=== PATIENT | female | born 1955 | race Asian ===

== ENCOUNTER 2016-07-20 08:29 | Emergency (ER) | payer BC ==
[2016-07-20 08:47] VITALS: BP 118/90; PULSE 94; RESP 20; TEMP 99; O2SAT 98
--- NOTE | 2016-07-20 09:16 | UCPHY ---
[id number] Seen by Provider: 07/20/16 08:57 HPI/ROS: Chief complaint: Cough, congestion, sore throat HPI: Patient presenting with complaints of cough, congestion, sore throat for the last 3 days. Cough is dry with occasional production of clear sputum. No fevers or chills. No nausea or vomiting. No shortness of breath. Patient has been taking [id number]-[id number] Claritin without relief. No ear pain. No chest pain. Patient has no past medical history, takes no medications, no allergies to medications. She does not smoke. ROS: 10 point Review of Systems is negative except as noted in the HPI. Physical exam: Gen: Awake, Alert, No Distress HEENT: Ears: Bilateral TMs are normal, no erythema or bulging. External auditory canals are clear. Nose: no rhinorrhea Eyes: PERRLA, EOMI Mouth: Moist mucosa mild pharyngeal erythema without exudate or edema Neck: Supple, no JVD Chest: nontender, lungs clear to auscultation Heart: S1, S2 normal, no murmur Abd: Soft, non-tender, no guarding Back: no CVA tenderness, no midline tenderness Ext: no edema, non-tender Skin: no rash Neuro: CN II-XII intact, Sensation grossly intact, Strength 5/5 in bilateral upper and lower extremities - Personal History Current Tetanus/Diphtheria Vaccine: Unsure - Family History Significant Family History: No pertinent family hx - Social History Smoking Status: Never smoked Constitutional: Initial Vital Signs Temperature (C) 37.2 C 07/20/16 08:44 Heart Rate 94 07/20/16 08:44 Respiratory Rate 20 07/20/16 08:44 Blood Pressure 118/90 H 07/20/16 08:44 O2 Sat (%) 98 07/20/16 08:44 O2 Delivery Mode Room Air Allergies/Adverse Reactions: No Known Allergies Allergy (Unverified 07/20/16 08:44) Home Medications: Medication Instructions Recorded NK [No Known Home Meds] 07/20/16 Medical Decision Making ED Course/Re-evaluation: Patient with viral upper respiratory symptoms. There is no focal source of infection. Lungs are clear. Departure - Departure Disposition: Home, Routine, Self-Care Clinical Impression: Viral upper respiratory illness Condition: Good Instructions: Viral Syndrome (ED) Additional Instructions: You may take [id number]-[id number]-[id number] cold medicines such as Tylenol cold and flu or any generic medications. May take ibuprofen for fevers, chills, aches and pains. Return Urgent Care follow up with primary care doctor in 3-4 days if symptoms are not improved Referrals: OUT OF STATE,. [Primary Care Provider] - As per Instructions Alen Concepcion [Doctor of Osteopathy] - As per Instructions - PQRS PQRS Measurement: NA
== END 2016-07-20 09:17 | disposition home or self-care (01) ==
LOC: CED 08:29
DX: J06.9 Acute upper respiratory infection, unspecified (principal)
CPT/HCPCS: G0463-PO